=== PATIENT | male | born 1995 | race American Indian/Alaskan Native ===

== ENCOUNTER 2022-05-19 22:55 | Emergency (ER) | payer OTHER ==
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
[2022-05-19 23:51] VITALS: BP 115/78
[2022-05-20] MEDS ORDERED: ACETAMINOPHEN 325 MG TAB PO ONE (00:15)
[2022-05-20] MEDS ORDERED: IBUPROFEN 400 MG TAB PO ONE (00:15)
[2022-05-20] MEDS ORDERED: TETANUS,DIPH,PERTUSS(ACELL) VACCINE 0.5 ML SYRINGE IM ONE (00:15)
== END 2022-05-20 01:00 ==
LOC: ED 22:55
DX: S00.81XA Abrasion of other part of head, initial encounter (principal); S50.812A Abrasion of left forearm, initial encounter; V87.7XXA Person injured in collision between other specified motor vehicles (traffic), initial encounter; Y93.89 Activity, other specified; Y92.488 Other paved roadways as the place of occurrence of the external cause; Y99.8 Other external cause status
CPT/HCPCS: 90471; 90715; 99283